=== PATIENT | male | born 1965 | race Caucasian/White ===

== ENCOUNTER 2017-02-11 08:02 | Emergency (ER) | payer OTHER ==
[~2017-02-11] VITALS: Ht 157.5 cm; Wt 66.5 kg
[~2017-02-11 08:02] MED LIST: AMLO5TAB4 PO; CEPH-443 PO; IBUP-1542 PO
[2017-02-11 08:12] VITALS: Ht 157.5 cm; Wt 66.5 kg
[2017-02-11] MEDS ORDERED: ONDANSETRON 4 MG INJ IV STA (08:51)
[2017-02-11] MEDS ORDERED: SOD CHLORIDE 0.9% 1,000 ML IV ONE (09:00)
--- NOTE | 2017-02-11 09:15 | ERD ---
ER Documentation Chief Complaint Date/Time DATE: 02/11/17 TIME: 09:12 Chief Complaint VOMITING LAST NIGHT, ON VIVITROL FOR ALCOHOL DEPENDENCY, SOBER 2MOS AGO HPI This is a 51-year-old male presents to the ER with nonbilious nonbloody vomiting for the last 2 days. Patient states that he got a shot of Vivotrol and Thursday. Patient is currently undergoing treatment for his alcoholism. He has been sober for the last 2 months. Patient denies any abdominal pain. He denies any fevers or chills. He denies any diarrhea. Patient denies any chest pain or shortness of breath. ROS 12 point review of systems was done, all negative except per HPI. Medications Home Meds Active Scripts Ondansetron Hcl* (Zofran*) 4 Mg Tab, 4 MG PO Q4H Y for NAUSEA AND OR VOMITING for 5 Days, TAB Prov:CHRISTY ANGULO 02/11/17 Ibuprofen* (Motrin*) 600 Mg Tab, 600 MG PO Q6, #20 TAB Prov:KISHA JACK MD 05/05/16 Cephalexin* (Keflex*) 500 Mg Capsule, 500 MG PO QID for 10 Days, CAP Prov:KISHA JACK MD 05/05/16 Reported Medications Amlodipine Besylate* (Norvasc*) 5 Mg Tablet, 5 MG PO DAILY, TAB 01/12/16 Allergies Allergies: Coded Allergies: No Known Allergy (Unverified , 02/11/17) PMhx/Soc Hx Neurological Disorder: No Hx Respiratory Disorders: No Hx Cardiac Disorders: No Hx Psychiatric Problems: No Hx Miscellaneous Medical Probl: Yes (LIVER PROBLEMS; chronic alcohol drinker) Hx Alcohol Use: Yes (DAILY 4 SHOTS OF HARD LIQUOR/DAY) Hx Substance Use: No Hx Tobacco Use: Yes (1 PACK A DAY) Smoking Status: Current every day smoker Physical Exam Vitals Vital Signs Date Time Temp Pulse Resp B/P Pulse Ox O2 Delivery O2 Flow Rate FiO2 02/11/17 08:12 97.8 65 18 159/83 99 Physical Exam GENERAL: The patient is well developed and appropriate for usual state of health , in no apparent distress. HEENT: Atraumatic. CHEST: Clear to auscultation bilaterally. There are no rales, wheezes or rhonchi. HEART: Regular rate and rhythm. No murmurs, clicks, rubs or gallops. ABDOMEN: Soft, nontender and nondistended. Good bowel sounds. No rebound or guarding. No gross peritonitis. No gross organomegaly or masses. No Weldon sign or McBurney point tenderness. BACK: No midline or flank tenderness. NEURO: Alert and oriented. Cranial nerves II through XII are intact. Motor strength in all 4 extremities with 5/5 strength. Sensation grossly intact. Normal speech and gait. SKIN: There is no apparent rash or petechia. The skin is warm and dry. Result Diagram: 02/11/1790402/11/17904 Results 24 hrs Laboratory Tests Test 02/11/17 09:01 02/11/17 09:05 Urine Color BETY Urine Clarity CLEAR Urine pH 6.0 Urine Specific [place] 1.025 Urine Ketones 1+mg/dL Urine Nitrite NEGATIVEmg/dL Urine Bilirubin 1+mg/dL Urine Urobilinogen 2+mg/dL Urine Leukocyte Esterase NEGATIVELeu/ul Urine Microscopic RBC 3/HPF Urine Microscopic WBC 1/HPF Urine Mucus MANY/HPF Urine Hemoglobin NEGATIVEmg/dL Urine Glucose NEGATIVEmg/dL Urine Total Protein 1+mg/dl White Blood Count 7.110^3/ul Red Blood Count 4.3610^6/ul Hemoglobin 14.8g/dl Hematocrit 44.8% Mean Corpuscular Volume 102.8fl Mean Corpuscular Hemoglobin 33.9pg Mean Corpuscular Hemoglobin Concent 33.0g/dl Red Cell Distribution Width 13.2% Platelet Count 46253^3/UL Mean Platelet Volume 10.6fl Neutrophils % 66.6% Lymphocytes % 18.6% Monocytes % 11.9% Eosinophils % 2.0% Basophils % 0.3% Nucleated Red Blood Cells % 0.0/100WBC Neutrophils # (Manual) 4.710^3/ul Lymphocytes # 1.310^3/ul Monocytes # 0.810^3/ul Eosinophils # 0.110^3/ul Basophils # 0.010^3/ul Nucleated Red Blood Cells # 0.010^3/ul Sodium Level 138mmol/L Potassium Level 3.9mmol/L Chloride Level 100mmol/L Carbon Dioxide Level 29mmol/L Anion Gap 13 Blood Urea Nitrogen 5mg/dl Creatinine 0.54mg/dl Glucose Level 102mg/dl Calcium Level 9.5mg/dl Total Bilirubin 1.1mg/dl Direct Bilirubin 0.00mg/dl Indirect Bilirubin 1.1mg/dl Aspartate Amino Transf (AST/SGOT) 41IU/L Alanine Aminotransferase (ALT/SGPT) 35IU/L Alkaline Phosphatase 101IU/L Total Protein 7.7g/dl Albumin 4.3g/dl Globulin 3.40g/dl Albumin/Globulin Ratio 1.26 Current Medications Medications (Trade) Dose Ordered Sig/Mann Route PRN Reason Start Time Stop Time Status Last Admin Dose Admin Sodium Chloride (NS) 1,000 ml @ 1,000 mls/hr Q1H ONCE IV 02/11/17 09:00 02/11/17 09:59 DC 02/11/17 09:09 Ondansetron HCl (Zofran Inj) 4 mg ONCE STAT IV 02/11/17 08:51 02/11/17 08:54 DC 02/11/17 09:09 [place] [id number] Radiology Main Line: [phone] DIAGNOSTIC IMAGING REPORT Patient: ALBERTO MIX : 1965 Age: 51 Sex: M MR #: [id number] DOS: 02/11/17 0000 Ordering MD: CHRISTY ANGULO PA-C Location: [facility] Room/Bed: PROCEDURE: CT Brain without. CLINICAL INDICATION: Headache. Vomiting. TECHNIQUE: A CT of the brain was performed on a multi-slice CT scanner utilizing axial sections from the skull base through the vertex without contrast. Coronal and sagittal reconstructed images were provided. One or more of the following does reduction techniques were used: Automated exposure control; adjustment of the mA and/or kV according to patient size; use of the aorta of reconstruction technique. Images were reviewed on a high-resolution PACS workstation. The exam CTDI = 43.48 mGy. The exam DLP = 120.23 mGy-cm. COMPARISON: CT brain 01/12/2016. FINDINGS: The ventricles and sulci are symmetric and normal in size and morphology. There is no evidence of intracranial hemorrhage, mass effect, edema or midline shift. No abnormal intra-axial or extra-axial fluid collections are seen. The currie/white matter differentiation is well preserved. There are a few scattered small calcifications stable compared to prior study and likely related to old neurocysticercosis. The osseous structures and visualized sinuses are unremarkable. The mastoid air cells are clear. The surrounding soft tissue scalp and bony calvarium are intact and normal. Atherosclerotic calcifications of the intracranial carotid arteries are present. IMPRESSION: 1. No CT evidence of acute intracranial pathology. 2. 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 [place] .Ismael Michael MD, MD Date Time Electronically viewed and signed by .Ismael Michael MD, MD on 2016 10:38 .B/ CC: CHRISTY ANGULO Procedures/MDM This case was discussed with my supervising physician Dr. Fisher. He guided my medical decision making and agrees with my medical decision making. Patient was given Zofran and fluids in the ER, upon reexamination patient stated he felt significant better. His blood work was checked there was no evidence of severe electrolyte abnormality or dehydration. No evidence of leukocytosis. EKG was taken and read by Dr. Fisher 41BPM no st elevation or t wave inversion. Patient's heart rate on intake was 65 bpm, because patient was bradycardic with vomiting head CT was done, there was no evidence of intracranial abnormality. Patient will be sent home with Zofran. He is to follow-up with his primary care doctor within 1-2 days or return to ER sooner if symptoms worsen. My medical decision making was discussed with the patient he understands and agrees with plan. Departure Diagnosis: Primary Impression: Vomiting Condition: Stable CHRISTY ANGULO Feb 11, 2017 09:15
[2017-02-11 09:19] LABS: ADD UMIC YES; UR ASCORBIC ACID NEGATIVE (NEGATIVE); UR BILIRUBIN (Dip) 1+ mg/dL (NEGATIVE); UR BLOOD (Dip) NEGATIVE (NEGATIVE); UR CLARITY CLEAR (CLEAR); UR COLOR AMBER (YELLOW); UR GLUCOSE (Dip) NEGATIVE (NEGATIVE); UR KETONES (Dip) 1+ mg/dL (NEGATIVE); UR LEUKOCYTE ESTERASE (Dip) NEGATIVE Leu/ul (NEGATIVE); UR MUCUS MANY /HPF (NONE SEEN); UR NITRITE (Dip) NEGATIVE (NEGATIVE); UR RBC 3 /HPF (0-5); UR SPECIFIC GRAVITY (Dip) 1.025 (1.003-1.030); UR TOTAL PROTEIN (Dip) 1+ mg/dl (NEGATIVE); UR UROBILINOGEN (Dip) 2+ mg/dL (NEGATIVE)
[2017-02-11 09:32] LABS: BASOPHILS % 0.3 % (0.0-2.0); EOSINOPHILS # 0.1 10^3/ul (0.0-0.5); HEMATOCRIT 44.8 % (42.0-52.0); HEMOGLOBIN 14.8 g/dl (14.0-18.0); LYMPHOCYTES # 1.3 10^3/ul (0.8-2.9); LYMPHOCYTES % 18.6 % (15.0-51.0); MEAN CORPUSCULAR HEMOGLOBIN 33.9 pg (29.0-33.0); MEAN CORPUSCULAR VOLUME 102.8 fl (82.0-101.0); MEAN PLATELET VOLUME 10.6 fl (7.4-10.4); MONOCYTE # 0.8 10^3/ul (0.3-0.9); MONOCYTES % 11.9 % (0.0-11.0); NEUTROPHILS % 66.6 % (39.0-77.0); PLATELET COUNT 203 10^3/UL (140-415); RED BLOOD COUNT 4.36 10^6/ul (4.70-6.10); RED CELL DISTRIBUTION WIDTH 13.2 % (11.5-14.5); WHITE BLOOD COUNT 7.1 10^3/ul (4.8-10.8)
[2017-02-11 09:53] LABS: ALBUMIN 4.3 g/dl (3.3-4.9); ALBUMIN/GLOBULIN RATIO 1.26; BILIRUBIN,INDIRECT 1.1 mg/dl (0-1.1); BILIRUBIN,TOTAL 1.1 mg/dl (0.2-1.3); CALCIUM 9.5 mg/dl (8.4-10.2); CREATININE 0.54 mg/dl (0.61-1.24); POTASSIUM 3.9 mmol/L (3.5-5.1); TOTAL PROTEIN 7.7 g/dl (6.1-8.1)
--- NOTE | 2017-02-11 10:39 | RADRPT ---
PROCEDURE: CT Brain without. CLINICAL INDICATION: Headache. Vomiting. TECHNIQUE: A CT of the brain was performed on a multi-slice CT scanner utilizing axial sections fr om the skull base through the vertex without contrast. Coronal and sagittal reconstructed images w ere provided. One or more of the following does reduction techniques were used: Automated exposure control; adjustment of the mA and/or kV according to patient size; use of the aorta of reconstructi on technique. Images were reviewed on a high-resolution PACS workstation. The exam CTDI = 43.48 mGy . The exam DLP = 120.23 mGy-cm. COMPARISON: CT brain 01/12/2016. FINDINGS: The ventricles and sulci are symmetric and normal in size and morphology. There is no evidence of i ntracranial hemorrhage, mass effect, edema or midline shift. No abnormal intra-axial or extra-axial fluid collections are seen. The currie/white matter differentiation is well preserved. There are a few scattered small calcifications stable compared to prior study and likely related to old neurocys ticercosis. The osseous structures and visualized sinuses are unremarkable. The mastoid air cells are clear. Th e surrounding soft tissue scalp and bony calvarium are intact and normal. Atherosclerotic calcificat ions of the intracranial carotid arteries are present. IMPRESSION: 1. No CT evidence of acute intracranial pathology. 2. 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 Of text [place] .Ismael Michael MD, MD Date Time Electronically viewed and signed by .Ismael Michael MD, MD on 02/11/2017 10:38 .B/
[2017-02-11] MEDS ORDERED: ONDA-43 PO (11:12)
[2017-02-11 11:27] VITALS: RESP 18; TEMP 98.4
== END 2017-02-11 11:29 | disposition home or self-care (01) ==
LOC: FTE 08:02
DX: R11.10 Vomiting, unspecified (principal); F17.210 Nicotine dependence, cigarettes, uncomplicated; R51 Headache
CPT/HCPCS: 70450; 80053; 81001; 85025; 93005; 96374; J2405; J7030; Z7502

== ENCOUNTER 2017-06-12 19:42 | Emergency (ER) | END 2017-06-13 00:24 | disposition home or self-care (01) ==

== ENCOUNTER 2018-10-05 15:21 | Emergency (ER) | payer OTHER ==
[~2018-10-05] VITALS: Ht 170.2 cm; Wt 65.9 kg
[~2018-10-05 15:21] MED LIST changes: -AMLO5TAB4 PO; +AZIT250T PO; +BENZ-6 PO; -CEPH-443 PO; -IBUP-1542 PO
[2018-10-05 15:38] VITALS: Ht 170.2 cm; Wt 65.9 kg
--- NOTE | 2018-10-05 16:53 | ERD ---
ER Documentation Chief Complaint Chief Complaint increased blood pressure; dizzy HPI 52-year-old male, with history of hypertension and heavy alcohol intake, presents to the emergency department, complaining of dizziness which he considers is secondary to elevated blood pressure. Otherwise, the patient denies headache, no chest pain, no abdominal pain. ROS All systems reviewed and are negative except as per history of present illness. Medications Home Meds Active Scripts Atenolol* (Atenolol*) 25 Mg Tablet, 25 MG PO DAILY, #30 TAB Prov:LEONARDO ORELLANA MD 10/05/18 Azithromycin* (Zithromax*) 250 Mg Tablet, 250 MG PO .ZPACK DIRECTED, #6 TAB TAKE 500 MG (2 TABS) THE FIRST DAY THEN 250 MG (1 TAB) DAYS 2-5 Prov:KIRA HORTON PA-C 06/13/17 Benzonatate* (Tessalon Perle*) 100 Mg Capsule, 100 MG PO Q8H PRN for COUGH, #30 CAP Prov:KIRA HORTON PA-C 06/13/17 Allergies Allergies: Coded Allergies: No Known Allergy (Unverified , 06/12/17) PMhx/Soc Hx Neurological Disorder: No Hx Respiratory Disorders: No Hx Cardiac Disorders: No Hx Psychiatric Problems: No Hx Miscellaneous Medical Probl: Yes (LIVER PROBLEMS; chronic alcohol drinker) Hx Alcohol Use: Yes (DAILY 4 SHOTS OF HARD LIQUOR/DAY) Hx Substance Use: No Hx Tobacco Use: Yes (1 PACK A DAY) FmHx Family History: No diabetes, No coronary disease Physical Exam Vitals Vital Signs Date Temp Pulse Resp B/P (MAP) Pulse Ox O2 O2 Flow FiO2 Time Delivery Rate 10/05/18 74 18 132/85 96 Room Air 17:14 (101) 10/05/18 98.4 81 19 160/84 97 15:38 (109) Physical Exam Const: No acute distress Head: Atraumatic Eyes: Normal Conjunctiva ENT: Normal External Ears, Nose and Mouth. Neck: Full range of motion. No meningismus. Resp: Clear to auscultation bilaterally Cardio: Regular rate and rhythm, no murmurs Abd: Soft, non tender, non distended. Normal bowel sounds Skin: No petechiae or rashes Back: No midline or flank tenderness Ext: No cyanosis, or edema Neur: Awake and alert Psych: Normal Mood and Affect Procedures/MDM Vital signs stable. Differential diagnosis considered include uncontrolled hypertension, hypertensive crisis, hypertensive urgency, hypertensive emergency. Low suspicion for acute end organ damage. During the ED course the patient remained stable, no new complaints. Results and clinical impression discussed with the patient who agrees with management. The patient is stable to be treated outpatient and will be discharged home; some side effects of prescribed medications (headache, rash, nausea, vomiting, diarrhea, drowsiness, habituation, bleeding, hypertension, interactions with other medications) were reviewed. Follow up with the primary care provider in the next 48h has been recommended. If symptoms persist, worsen or new symptoms develop, then patient should return to the ED immediately. Instructions explained and given directly by me to the patient with acknowledgment and demonstrated understanding. Disclaimer: Inadvertent spelling and grammatical errors are likely due to EHR/dictation software use and do not reflect on the overall quality of patient care. Also, please note that the electronic time recorded on this note does not necessarily reflect the actual time of the patient encounter. Departure Diagnosis: Primary Impression: Hypertension Condition: Stable Patient Instructions: High Blood Pressure (Hypertension) Additional Instructions: Thank you very much for allowing us to participate in your care. Your health and safety is our top priority at [facility]. The evaluation in the emergency department has been done to rule out an acute emergency, therefore, chronic conditions like malignancy or other diseases have not been evaluated; therefore, you need to follow up with a primary care provider in the next 48h. If symptoms persist, worsen or new symptoms develop, then patient should return to the ED immediately. Call your primary care doctor TOMORROW for an appointment during the next 2-4 days and bring all the information provided. Have prescriptions filled and follow precisely the directions on the label. If the symptoms get worse and your provider is unavailable, return to the Emergency Department immediately. LEONARDO ORELLANA MD October 05, 2018 16:53
[2018-10-05] MEDS ORDERED: ATEN-51 PO (16:55)
[2018-10-05 17:14] VITALS: BP 132/85; PULSE 74; RESP 18
== END 2018-10-05 17:15 | disposition home or self-care (01) ==
LOC: FTE 15:21
DX: I10 Essential (primary) hypertension (principal); Z87.891 Personal history of nicotine dependence
CPT/HCPCS: 99283

== ENCOUNTER 2019-04-06 11:19 | Emergency (ER) | payer OTHER ==
[~2019-04-06] VITALS: Ht 175.3 cm; Wt 63.0 kg
[~2019-04-06 11:19] MED LIST changes: +ATEN-51 PO
[2019-04-06 11:42] VITALS: Ht 175.3 cm; Wt 63.0 kg
[2019-04-06] MEDS ORDERED: LORAZEPAM 1 MG TAB PO ONE (16:30)
[2019-04-06] MEDS ORDERED: ASPIRIN 81 MG TAB PO ONE (18:30)
[2019-04-06] MEDS ORDERED: ONDANSETRON 4 MG INJ IV PRN (18:30)
[2019-04-06] MEDS ORDERED: ACETAMINOPHEN 325 MG TAB PO PRN ×2 (18:30→19:00)
[2019-04-06] MEDS ORDERED: ONDANSETRON 4 MG TAB PO PRN (19:00)
[2019-04-06] MEDS ORDERED: HYDROCODONE/APAP (5/325) TAB PO PRN (19:00)
[2019-04-06] MEDS ORDERED: NITROGLYCERIN (SL) 0.4 MG TAB SL PRN (19:00)
[2019-04-06] MEDS ORDERED: DOCUSATE SODIUM 100 MG CAP PO PRN (19:00)
[2019-04-06] MEDS ORDERED: NACL 0.9% 3 ML SYG IV SCH (19:00)
[2019-04-06] MEDS: FAMOTIDINE 20 MG TAB PO SCH (21:00)
[2019-04-06] MEDS: ENOXAPARIN 40 MG/0.4 ML SYG SC SCH (23:24)
[2019-04-07] MEDS ORDERED: ASPIRIN 81 MG TAB PO SCH (09:00)
[2019-04-07] MEDS: FAMOTIDINE 20 MG TAB PO SCH (09:18)
[2019-04-07] MEDS: ENOXAPARIN 40 MG/0.4 ML SYG SC SCH (09:19)
[2019-04-07 14:25] VITALS: BP 145/87; PULSE 74; RESP 18
== END 2019-04-07 14:25 | disposition home or self-care (01) ==
LOC: E/R 11:19 → EDBEDREQTM 23:54 → EDBEDREQSVC 23:54 → EDBEDREQ 23:54 → E/R 04-07 14:25 → CANBEDREQ 04-09 02:45
DX: R00.2 Palpitations (principal); R20.2 Paresthesia of skin; R94.31 Abnormal electrocardiogram [ECG] [EKG]; I10 Essential (primary) hypertension; F17.210 Nicotine dependence, cigarettes, uncomplicated
CPT/HCPCS: 36415; 71045; 80053; 80061; 82550; 82553; 83036; 84443; 84484; 85025; 85378; 93306; 93970; 96372; J1650; Z7502; Z7610; 93005